=== PATIENT | female | born 1940 | race Caucasian/White ===

== ENCOUNTER → 2016-05-09 | Day surgery (SDC) | payer OTHER, MEDICARE ==
[~2016-05-09] VITALS: Ht 172.7 cm; Wt 76.2 kg
[~2016-05-09] MED LIST: ALTACE5 M2 PO; HYDROCHLOROTH12.5 M3 PO; PLAVIX75 M1 PO; SPIRIVA18 MCG INH; VIVELLE-DOT1 EAC4 TOP
--- NOTE | 2016-05-09 16:14 | Operative Report ---
Operative/Inv Procedure Report Surgery Date: 05/09/16 Name of Procedure: transurethral resection of bladder tumor. Pre-Operative Diagnosis: bladder tumors Post-Operative Diagnosis: same Estimated Blood Loss: scant Surgeon/Parks Re[employer] Director: ANJANA MERCADO MD Anesthesia: laryngeal mask airway Drains: 16fr cedeño Specimens: resected bladder tumor Complications: none Condition: stable Operative Indication: bladder tumor Operative/Procedure Note Note: This an operative dictation on patient Rahel Dong. She was identified in the holding area and consented for transurethral resection of bladder tumor. The risks benefits and alternatives of the surgery were given and all questions were answered. Patient was taken to the operating placed on the operating table in supine position. Once timeout was performed general anesthesia with LMA was given and IV antibodies were infused. Patient was placed in the dorsal lithotomy position. She was prepped and draped in the standard sterile fashion. Cystoscope was placed into the bladder bladder was globally inspected. There was a pedunculated Brockley-like tumor on the left lateral wall superior to the ureteral orifice approximately 3 inches. There were no other tumors that were visible. Pictures were taken to show the patient afterwards. The resect the scope was then placed into the bladder with the monopolar cutting and cautery. This was used to resect the bladder tumor and was sent off for pathology evaluation. The area was then coagulated taking care so so as to stop any bleeding although there was no active bleeding noted. The resection was down to the fat level. There were no other areas of tumors or abnormalities in the mucosa. Ureteral orifices were easily identified again. The patient tolerated the procedure well. A 16 Bengali Cedeño catheter was placed to drain the bladder. Patient was cleaned and dried of the Betadine solution. She was transferred to the recovery room stable condition. Findings: pedunculated broccoli like bladder tumor. Superior to the left ureteral orifice about 3 inches. Discharge Disposition: PACU
== END ==
LOC: STS 02:05
DX: C67.9 Malignant neoplasm of bladder, unspecified (principal); J44.9 Chronic obstructive pulmonary disease, unspecified; Z85.118 Personal history of other malignant neoplasm of bronchus and lung; Z87.891 Personal history of nicotine dependence; I10 Essential (primary) hypertension
CPT/HCPCS: 88307; J0690; J2250

== ENCOUNTER → 2017-06-05 | Day surgery (SDC) | payer OTHER, MEDICARE ==
[~2017-06-05] VITALS: Ht 172.7 cm; Wt 81.6 kg
--- NOTE | 2017-06-05 08:19 | Operative Report ---
Operative/Inv Procedure Report Surgery Date: 06/05/17 Name of Procedure: biopsy with fulguration Pre-Operative Diagnosis: bladder lesions Post-Operative Diagnosis: same Estimated Blood Loss: scant Surgeon/Lan Specialist: Nerissa Jean MD Anesthesia: local monitored anesthesi Specimens: bladder biopsies x4 Complications: none Condition: stable Operative Indication: bladder lesions at site of previous resection Operative/Procedure Note Note: 77yo female with a hx of bladder cancer s/ p TURBT in 05/13 now with recurrence of bladder lesions in the same site. She was consented for bladder biopsies with fulguration. There were too many to be done in the office. She understands the risks, benefits and alternatives. Patient was identified in the holding area and taken to the operating room. She was placed supine on the table. Time out was performed. Iv sedation was begun and IV antibiotics were infused. She was placed in the dorsal lithotomy position. She was prepped and draped in the standard sterile fashion. Rigid cystoscope was placed and the bladder was globally inspected. There were no bladder abnormalities except in the area of the left lateral wall superior to the left ureteral orifice. The stellate scar from the previous TURBT was easily identifiable. There was lesions along the stellate outer area and cold cup biopsies were taken x4. These were sent off in formalin. The area was cauterized with the [place] cautery device. There was no active bleeding. The ureteral orifice was not injured. THe bladder was emptied and the patient was cleaned of the betadine prep. She tolerated the procedure well. She was transferred to the recovery room in stable condition. Findings: stellate scar with lesion within the stellate arms Discharge Disposition: Same Day Admissions
== END ==
LOC: STS 01:35
DX: D49.4 Neoplasm of unspecified behavior of bladder (principal); Z85.51 Personal history of malignant neoplasm of bladder; Z87.891 Personal history of nicotine dependence; J44.9 Chronic obstructive pulmonary disease, unspecified; Z85.118 Personal history of other malignant neoplasm of bronchus and lung; N39.0 Urinary tract infection, site not specified; I10 Essential (primary) hypertension
CPT/HCPCS: J0131; J0690; J2405